=== PATIENT | male | born 1960 | race Caucasian/White ===

== ENCOUNTER 2017-06-10 07:15 | Emergency (ER) | payer OTHER ==
[2017-06-10 07:34] VITALS: RESP 20
[2017-06-10] MEDS ORDERED: Sodium Chloride 0.9% 1,000 ML IV ONE (07:49)
[2017-06-10] MEDS ORDERED: Aluminum Hydroxide/Magnesium Hydroxide Susp (30 mL) PO STA (07:51)
[2017-06-10 08:01] LABS: BASO % 0.7 % (0.0-2.0); EOS % 0.7 % (0.0-4.0); HEMOGLOBIN 16.4 g/dL (12.0-18.0); LYMPH # 1.1 K/uL (1.0-4.3); LYMPH % 18.9 % (20.0-40.0); MEAN CELL VOLUME 102.4 fL (80.0-94.0); MEAN CORPUSCULAR HEMOGLOBIN 34.8 pg (27.0-31.0); MEAN PLATELET VOLUME 8.9 fL (7.2-11.7); MONO # 0.7 K/uL (0.0-0.8); MONO % 11.5 % (0.0-10.0); NEUT % 68.2 % (50.0-75.0); NRBC % 0.1 % (0.0-2.0); RBC 4.7 Mil/uL (4.40-5.90); RED CELL DISTRIBUTION WIDTH 13.2 % (11.5-14.5); WHITE BLOOD COUNT 5.8 K/uL (4.8-10.8)
[2017-06-10 08:10] LABS: ALBUMIN 4.5 g/dL (3.5-5.0)
[2017-06-10 08:12] LABS: GFR AFRICAN-AMERICAN > 60; GFR NON-AFRICAN AMERICAN > 60
[2017-06-10 08:13] LABS: ALB/GLOB RATIO 1.3 (1.0-2.1); ALT/SGPT 32 U/L (21-72); AST/SGOT 124 U/L (17-59); BLOOD UREA NITROGEN 12 mg/dL (9-20); LIPASE 20 U/L (23-300)
[2017-06-10] MEDS ORDERED: Aluminum Hydroxide/Magnesium Hydroxide Susp (30 mL) ONE (08:13)
[2017-06-10] MEDS ORDERED: Sodium Chloride 0.9% 1,000 ML ONE (08:13)
[2017-06-10 08:21] LABS: CK-MB 4.25 ng/mL (0.0-3.38)
[2017-06-10 09:03] LABS: URINE AMORPHOUS SEDIMENT MANY /ul (<OCC); URINE BILIRUBIN 1+ (NEGATIVE); URINE BLOOD NEGATIVE (NEGATIVE); URINE CLARITY Turbid (Clear); URINE GLUCOSE (UA) NORMAL (Normal); URINE LEUKOCYTE ESTERASE NEG Leu/uL (Negative); URINE NITRATE NEGATIVE (NEGATIVE)
[2017-06-10 09:05] LABS: URINE COLOR ORANGE (YELLOW); URINE PROTEIN 1+ mg/dL (NEGATIVE)
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
[2017-06-10 10:49] VITALS: BP 151/93; PULSE 68; TEMP 97.9
[2017-06-10 11:43] VITALS: O2SAT 95
== END 2017-06-10 10:50 | disposition home or self-care (01) ==
LOC: C.ER 07:15
DX: K29.70 Gastritis, unspecified, without bleeding (principal); R11.2 Nausea with vomiting, unspecified
CPT/HCPCS: 71020; 80053; 80320; 81001; 82553; 83690; 84484; 85025; 96361; 96374; 99285; J2405; J7040